=== PATIENT | male | born 1945 | race Caucasian/White ===

== ENCOUNTER 2017-10-29 07:44 | Day surgery (SDC) | payer MEDICARE, OTHER ==
--- NOTE | 2017-07-07 07:44 | HPN ---
Date/Time of Note Date/Time of Note DATE: 07/07/17 TIME: 07:43 Interval H&P Admission Note Pt. seen H&P reviewed: No system changes ALEX BREWER MD Jul 07, 2017 07:44
[2017-10-28 10:55] VITALS: BMI 18.0
[~2017-10-29] VITALS: Ht 160 cm; Wt 47.9 kg
[2017-10-29] VITALS (10 sets, daily range): BP systolic 111–157; BP diastolic 63–74; PULSE 60–80; RESP 14–16; Ht 160 cm; Wt 47.9 kg
[~2017-10-29 07:44] MED LIST: ATROPINE 1 MG/10 ML SYRINGE IV PRN; BUPIVACAINE 0.75% (MPF) 10 ML INJ ONE; CARBACHOL 0.01% 1.5 ML OPH INJ ONE; CYCLOPENTOLATE 2% 2 ML OPH OPER SCH; DIPHENHYDRAMINE 50 MG INJ IV PRN; EPHEDrine SULFATE 50 MG/5 ML SYG IV PRN; EPINEPHrine 1 MG INJ ONE; FENTAnyl 50 MCG/ML VIAL IV PRN; GLYCOPYRROLATE 0.4 MG INJ ONE; HYDROmorphONE (0.2 MG/ML) 10ML SYG IV PRN; LABETALOL HCL 20MG INJ IV PRN; LIDOCAINE 1% (MPF) 10 ML INJ ONE; LIDOCAINE 2% (SDV) 5 ML INJ ONE; MEPERIDINE 25 MG INJ IV PRN; MIDAZOLAM 1 MG/ML 2 ML INJ IV PRN; MOXIFLOXACIN 0.5% 3 ML OPH OPER ONE; MOXIFLOXACIN 0.5% 3 ML OPH OPER SCH; NEOSTIGMINE 3 MG/3 ML SYRINGE ONE; NEPAFENAC 0.1% 3 ML OPH OPER SCH; ONDANSETRON 4 MG INJ IV PRN; OXYCODONE/ACETAMINOPHEN (5/325) TAB PO PRN; PHENYLephrine 10% 5 ML OPH OPER SCH; ROCURONIUM 50 MG INJ ONE; SODIUM BICARBONATE (IV ADD) 50 ML ONE; TIMOLOL 0.5% 5 ML OPH ONE; hydrALAzine 20 MG INJ IV PRN; morphine (1 MG/ML) 10ML SYRINGE IV PRN
[2017-10-29] MEDS ORDERED: ATOR10TA65 PO (08:03)
[2017-10-29] MEDS ORDERED: AMLO5TAB4 PO (08:03)
[2017-10-29] MEDS ORDERED: CALC667C PO (08:04)
[2017-10-29] MEDS ORDERED: LEVE250T5 PO (08:05)
--- NOTE | 2017-10-29 08:32 | HPN ---
Date/Time of Note Date/Time of Note DATE: 10/29/17 TIME: 08:31 Interval H&P Admission Note Pt. seen H&P reviewed: No system changes ALEX BREWER MD Oct 29, 2017 08:32
[2017-10-29] MEDS ORDERED: PHENYLephrine 10% 5 ML OPH LEFT EYE ONE (08:35)
[2017-10-29] MEDS ORDERED: TETRACAINE 0.5% 4 ML OPH LEFT EYE ONE (08:35)
[2017-10-29] MEDS ORDERED: LIDOCAINE 100 MG SYRINGE ONE (08:48)
[2017-10-29] MEDS ORDERED: PROPOFOL 100 ML ONE (08:48)
[2017-10-29] MEDS ORDERED: TIMOLOL 0.5% 5 ML OPH LEFT EYE ONE (09:40)
--- NOTE | 2017-10-29 09:48 | SIPON ---
Date/Time of Note Date/Time of Note DATE: 10/29/17 TIME: 09:43 Operative Report Preoperative Diagnosis senile cataract left eye Postoperative Diagnosis same Operation/Procedure Performed cataract extraction with lens implant Surgeon taylor signature line design assistant none Anesthesia: general Estimated blood loss: none Transfusion Required none Specimen none Grafts/Implants none Complications none ALEX BREWER MD Oct 29, 2017 09:48
--- NOTE | 2017-10-29 12:31 | OPR ---
DATE OF OPERATION: 10/29/2017 SURGEON: Alex Medina MD CAPACITOR INSPECTOR: None. ANESTHESIOLOGIST: PREOPERATIVE DIAGNOSIS: Senile nuclear sclerotic cataract left eye. POSTOPERATIVE DIAGNOSIS: Senile nuclear sclerotic cataract, left eye. OPERATION: Kelman phacoemulsification with implantation of intraocular lens left eye. DESCRIPTION OF PROCEDURE: Following standard preparation and draping of the patient, a lid speculum was placed for immobilization of the lids. A SuperBlade incision was made at the corneal limbal ju nction for access into the anterior chamber. Approximately 0.03 mL of nonpreserved 1% Xylocaine was instilled into the anterior chamber, and after approximately 5 to 10 seconds, this was replaced wit h Viscoat. A clear corneal incision was then made using the 3.2 mm keratome, following which an ant erior circular capsulorrhexis was made. The major portion of the lens cortex and nucleus were then dislocated from the capsular bag using hydrodissection. The KPE tip was introduced into the eye and controlling tumbling of the lens with a 2-handed technique, the major portion of the lens cortex an d nucleus was removed, maintaining the lens in the plane of the iris. The remaining cortical materi al was removed via the irrigating aspirating instrument. The capsular bag and the anterior chamber were now reformed using Viscoat. The proper power lens was then placed in the capsular bag. The vi scoelastic was then removed from the eye and the eye reformed with balanced salt solution. One 10-0 Vicryl suture was then used to ensure closure of the corneal incision. The eye was reformed to nor mal pressure using balanced salt solution. The eye and cul-de-sacs were now simply flooded with 5% Betadine solution. One drop of Vigamox and 1 drop of Betagan solution were instilled into the eye. A light pressure dressing was applied, and the patient was returned to the recovery room in satisfa ctory condition. Dictated By: ALEX GAMBOA/HELEN Conf#: [id number] DID#: [id number]
== END 2017-10-29 11:01 | disposition home or self-care (01) ==
LOC: SDS 07:44
PROVIDERS: ATTEND Ophthalmology
DX: H25.12 Age-related nuclear cataract, left eye (principal); N18.9 Chronic kidney disease, unspecified; I12.9 Hypertensive chronic kidney disease with stage 1 through stage 4 chronic kidney disease, or unspecified chronic kidney disease
CPT/HCPCS: 66984; 84132; J0171; J2001; J2710; V2632

== ENCOUNTER → 2018-01-27 | Outpatient (CLI) | END | disposition home or self-care (01) ==

== ENCOUNTER 2019-06-16 06:58 | Day surgery (SDC) | payer MEDICARE, OTHER ==
[2019-06-15 15:05] VITALS: BMI 16.0
[2019-06-16] VITALS (9 sets, daily range): BP systolic 101–159; BP diastolic 59–71; PULSE 57–66; RESP 12–22; Ht 154.9 cm; Wt 46.8 kg
[~2019-06-16] VITALS: Ht 154.9 cm; Wt 46.8 kg
[~2019-06-16 06:58] MED LIST changes: +AMLO5TAB4 PO; +ATOR10TA65 PO; -ATROPINE 1 MG/10 ML SYRINGE IV PRN; -BUPIVACAINE 0.75% (MPF) 10 ML INJ ONE; +CALC667C PO; -CARBACHOL 0.01% 1.5 ML OPH INJ ONE; +CARV12.579 PO; -DIPHENHYDRAMINE 50 MG INJ IV PRN; -EPHEDrine SULFATE 50 MG/5 ML SYG IV PRN; -EPINEPHrine 1 MG INJ ONE; -FENTAnyl 50 MCG/ML VIAL IV PRN; +FERR210T ORAL; -GLYCOPYRROLATE 0.4 MG INJ ONE; -HYDROmorphONE (0.2 MG/ML) 10ML SYG IV PRN; -LABETALOL HCL 20MG INJ IV PRN; +LEVE250T5 PO; +LEVE250T66 PO; -LIDOCAINE 1% (MPF) 10 ML INJ ONE; -LIDOCAINE 2% (SDV) 5 ML INJ ONE; -MEPERIDINE 25 MG INJ IV PRN; -MIDAZOLAM 1 MG/ML 2 ML INJ IV PRN; -MOXIFLOXACIN 0.5% 3 ML OPH OPER SCH; -NEOSTIGMINE 3 MG/3 ML SYRINGE ONE; -ONDANSETRON 4 MG INJ IV PRN; -OXYCODONE/ACETAMINOPHEN (5/325) TAB PO PRN; -ROCURONIUM 50 MG INJ ONE; -SODIUM BICARBONATE (IV ADD) 50 ML ONE; -TIMOLOL 0.5% 5 ML OPH ONE; -hydrALAzine 20 MG INJ IV PRN; -morphine (1 MG/ML) 10ML SYRINGE IV PRN
--- NOTE | 2019-06-16 08:24 | PREAC ---
Date/Time of Note Date/Time of Note DATE: 06/16/19 TIME: 08:22 Anesthesia Eval and Record Evaluation Time Pre-Procedure Interview DATE: 06/16/19 TIME: 08:22 Age 73 Sex male NPO: 8 hrs Preoperative diagnosis Right eye cataract Planned procedure Cataract extraction with IOL implant Past Medical History Past Medical History: Includes Cardio: HTN, Dyslipidemia Neuro: Seizure disorder Renal: ESRD on dialysis, HD last: (06/14) Surgery & Anesthesia Issues No known issue Meds Anticoagulation: No Beta Graciela within 24 hr: Yes Reported Medications Levetiracetam* (Keppra*) 250 Mg Tab, 250 MG PO BID, TAB 06/16/19 Ferric Citrate (Auryxia) 210 Mg Tablet, 2 TAB ORAL TID 06/16/19 Carvedilol* (Carvedilol*) 12.5 Mg Tablet, 12.5 MG PO BID, #60 TAB 06/15/19 Calcium Acetate* (Calcium Acetate*) 667 Mg Capsule, 2 CAP PO WITH MEALS, #30 CAP 10/29/17 Atorvastatin Calcium (Atorvastatin Calcium) 10 Mg Tablet, 10 MG PO QHS, #30 TAB 10/29/17 Amlodipine Besylate* (Norvasc*) 5 Mg Tablet, 10 MG PO DAILY, TAB 10/29/17 Discontinued Reported Medications Levetiracetam* (Levetiracetam*) 250 Mg Tablet, 500 MG PO BID, TAB 10/29/17 Current Medications Cyclopentolate HCl (Cyclogyl 2% Oph) 1 drop Q5 MIN X 3 OPER Last administered on 06/16/19at 07:55; Admin Dose 1 DROP; Start 06/16/19 at 06:00 Phenylephrine HCl (Ak-Dilate 10%) 1 drop Q5 MIN X3 OPER Last administered on 06/16/19at 07:55; Admin Dose 1 DROP; Start 06/16/19 at 06:00 Nepafenac ([place] Oph) 1 drop Q5 MIN X3 OPER Last administered on 06/16/19at 07:55; Admin Dose 1 DROP; Start 06/16/19 at 06:00 Meds reviewed: Yes Allergies Coded Allergies: No Known Allergy (Verified , 06/15/19) Allergies Reviewed: Yes Labs/Studies Labs Reviewed: Reviewed by anesthesiologist test: N/A Pre-procedure Exam Airway: Adequate mouth opening Mallampati: Mallampati I Teeth: Normal Lung: Normal Heart: Normal ASA Physical Status ASA physical status: 3 Emergency: None Planned Anesthetic General/MAC: MAC Planned Pain Management Parenteral pain med Pre-operative Attestations Prior to commencing anesthesia and surgery, the patient was re-evaluated, there was verification of: *The patient's identity *The results of appropriate recent lab work and preoperative vital signs *The above evaluation not changing prior to induction *Anesthetic plan, risk benefits, alternative and complications discussed with patient/family; questions answered; patient/family understands, accepts and wishes to proceed. SHANTANU RYAN MD Jun 16, 2019 08:24
[2019-06-16] MEDS ORDERED: BUPIVACAINE 0.5% (SDV) 30 ML INJ ONE (10:24)
[2019-06-16] MEDS ORDERED: EPINEPHrine 1 MG INJ ONE (10:24)
[2019-06-16] MEDS ORDERED: LIDOCAINE 1% (MPF) 5 ML VIAL ONE (10:25)
[2019-06-16] MEDS ORDERED: NA BICARB 50 MEQ/50 ML VIAL ONE (10:25)
[2019-06-16] MEDS ORDERED: NA HYALURONATE/CHONDROITIN 0.5 ML SYG ONE (10:25)
[2019-06-16] MEDS ORDERED: LIDOCAINE 2% (SDV) 5 ML INJ ONE (10:27)
--- NOTE | 2019-06-16 10:28 | HPN ---
Date/Time of Note Date/Time of Note DATE: 06/16/19 TIME: 10:27 ALEX BREWER MD Jun 16, 2019 10:28
[2019-06-16] MEDS ORDERED: PROPOFOL 20 ML ONE (10:50)
[2019-06-16] MEDS ORDERED: MIDAZOLAM 1 MG/ML 2 ML INJ ONE (10:50)
[2019-06-16] MEDS ORDERED: EPINEPHrine 0.1 MG/ML SYG ZFS ONE (10:55)
[2019-06-16] MEDS ORDERED: NA BICARBONATE 8.4% 50 ML SYG IV ONE (10:55)
[2019-06-16] MEDS ORDERED: BALANCED SALT SOLN 500 ML OPH IRRIG IRR ONE (10:55)
[2019-06-16] MEDS ORDERED: BUPIVACAINE 0.75% (MPF) 10 ML INJ INJ ONE (10:55)
[2019-06-16] MEDS ORDERED: TIMOLOL MALEATE/PF 0.5% OCCUDOSE (0.3 ML) ONE (11:07)
[2019-06-16] MEDS ORDERED: FENTAnyl 50 MCG/ML VIAL ONE (11:08)
[2019-06-16] MEDS ORDERED: CARBACHOL 0.01% 1.5 ML OPH INJ ONE (11:27)
[2019-06-16] MEDS ORDERED: CARBACHOL 0.01% 1.5 ML OPH INJ RIGHT EYE ONE (11:29)
[2019-06-16] MEDS ORDERED: FENTAnyl 50 MCG/ML VIAL IV PRN ×3 (11:30)
[2019-06-16] MEDS ORDERED: ONDANSETRON 4 MG INJ IV PRN (11:30)
[2019-06-16] MEDS ORDERED: MEPERIDINE 25 MG INJ IV PRN (11:30)
[2019-06-16] MEDS ORDERED: OXYCODONE/ACETAMINOPHEN (5/325) TAB PO PRN ×2 (11:30)
[2019-06-16] MEDS ORDERED: EPHEDrine 25 MG/5 ML SYG IV PRN (11:30)
[2019-06-16] MEDS ORDERED: METOCLOPRAMIDE 10 MG INJ IV PRN (11:30)
[2019-06-16] MEDS ORDERED: LABETALOL HCL 20MG INJ IV PRN (11:30)
[2019-06-16] MEDS ORDERED: hydrALAzine 20 MG INJ IV PRN (11:30)
[2019-06-16] MEDS ORDERED: DIPHENHYDRAMINE 50 MG INJ IV PRN (11:30)
[2019-06-16] MEDS ORDERED: MIDAZOLAM 1 MG/ML 2 ML INJ IV PRN (11:30)
--- NOTE | 2019-06-16 11:50 | SIPON ---
Date/Time of Note Date/Time of Note DATE: 06/16/19 TIME: 11:46 Operative Report Preoperative Diagnosis senile nuclear sclerotic cataract Postoperative Diagnosis same Operation/Procedure Performed phacoemulsification with posterior chamber implant Surgeon see signature line clerical assistant none Anesthesia: MAC Estimated blood loss: none Transfusion Required none Specimen none Grafts/Implants none Complications none ALEX BREWER MD Jun 16, 2019 11:50
--- NOTE | 2019-06-16 14:28 | PAC ---
Date/Time of Note Date/Time of Note DATE: 06/16/19 TIME: 14:28 Post-Anesthesia Notes Post-Anesthesia Note Last documented vital signs Vital Signs Date Temp Pulse Resp B/P (MAP) Pulse Ox O2 O2 Flow FiO2 Time Delivery Rate 06/16/19 97.8 57 16 137/69 100 12:25 (91) 06/16/19 Room Air 12:09 Activity: WNL Respiratory function: WNL Cardiovascular function: WNL Mental status: Baseline Pain reasonably controlled: Yes Hydration appropriate: Yes Nausea/Vomiting absent: Yes SHANTANU RYAN MD Jun 16, 2019 14:28
--- NOTE | 2019-06-16 17:53 | OPR ---
DATE OF OPERATION: 06/16/2019 SURGEON: Alex Medina MD MORNING SHOW [employer] PRODUCER: None. ANESTHESIOLOGIST: PREOPERATIVE DIAGNOSIS: Senile nuclear sclerotic cataract right eye. POSTOPERATIVE DIAGNOSIS: Senile nuclear sclerotic cataract, right eye. OPERATION: Kelman phacoemulsification with implantation of intraocular lens right eye. DESCRIPTION OF PROCEDURE: Following standard preparation and draping of the patient, a lid speculum was placed for immobilization of the lids. A SuperBlade incision was made at the corneal limbal junc tion for access into the anterior chamber. Approximately 0.03 mL of nonpreserved 1% Xylocaine was in stilled into the anterior chamber, and after approximately 5 to 10 seconds, this was replaced with Vi scoat. A clear corneal incision was then made using the 3.2 mm keratome, following which an anterior circular capsulorrhexis was made. The major portion of the lens cortex and nucleus were then disloc ated from the capsular bag using hydrodissection. The KPE tip was introduced into the eye and contro lling tumbling of the lens with a 2-handed technique, the major portion of the lens cortex and nucleu s was removed, maintaining the lens in the plane of the iris. The remaining cortical material was re moved via the irrigating aspirating instrument. The capsular bag and the anterior chamber were now r eformed using Viscoat. The proper power lens was then placed in the capsular bag. The viscoelastic was then removed from the eye and the eye reformed with balanced salt solution. One 10-0 Vicryl sutu re was then used to ensure closure of the corneal incision. The eye was reformed to normal pressure using balanced salt solution. The eye and cul-de-sacs were now simply flooded with 5% Betadine solut ion. One drop of Vigamox and 1 drop of Betagan solution were instilled into the eye. A light pressu re dressing was applied, and the patient was returned to the recovery room in satisfactory condition. Dictated By: ALEX GAMBOA/HELEN Conf#: [id number] DID#: [id number]
== END 2019-06-16 13:05 | disposition home or self-care (01) ==
LOC: SDS 06:58
PROVIDERS: ATTEND Ophthalmology
DX: H25.11 Age-related nuclear cataract, right eye (principal); I12.0 Hypertensive chronic kidney disease with stage 5 chronic kidney disease or end stage renal disease; N18.6 End stage renal disease; Z99.2 Dependence on renal dialysis; G40.909 Epilepsy, unspecified, not intractable, without status epilepticus
CPT/HCPCS: 66984; 71045; 84132; J0171; J2250; J3010; V2632